=== PATIENT | male | born 1950 | race Caucasian/White ===

== ENCOUNTER 2021-04-09 09:44 | Day surgery (SDC) | payer OTHER ==
[~2021-04-09] VITALS: Ht 182.9 cm; Wt 74.3 kg
[~2021-04-09 09:44] MED LIST: Prinivil10 MG PO
[2021-04-09] MEDS ORDERED: ARIMIDEX1 M2 (10:21)
[2021-04-09] MEDS ORDERED: TADA10TA (10:22)
[2021-04-09] MEDS ORDERED: Vitamin K100 MCG (10:22)
== END 2021-04-09 12:34 | disposition home or self-care (01) ==
LOC: ORSCSDS 09:44
PROVIDERS: Surgery
PROC: 0DBN8ZX Excision of Sigmoid Colon, Via Natural or Artificial Opening Endoscopic, Diagnostic (ICD-10-PCS; principal; 2021-04-09 11:00)
DX: Z12.11 Encounter for screening for malignant neoplasm of colon (principal); K63.5 Polyp of colon; Z86.010 Personal history of colon polyps; I10 Essential (primary) hypertension; Z79.899 Other long term (current) drug therapy; Z87.891 Personal history of nicotine dependence
CPT/HCPCS: 88305; J2704; J7120